=== PATIENT | male | born 1950 | race Caucasian/White ===

== ENCOUNTER → 2016-08-15 | Day surgery (SDC) | payer MEDICARE ==
[~2016-08-15] MED LIST: AMARYL PO; ASPIRIN EC81 M1 PO; CIPRO PO; FLOMAX0.4 M1 PO; FORTAMET1000 MG PO; GLIPIZIDE ER2.5 MG PO; GLUCOPHAGE500 MG PO; HYDROCHLOROTHIA25 MG PO; LISINOPRIL10 MG PO; LORCET HD CAPSU1 CA1 PO; LOSARTAN POTAS100 MG PO; LOSARTAN POTASS50 MG PO; METFORMIN HCL500 M1 PO; NAPROSYN500 MG PO
--- NOTE | ~2016-08-15 | OR ---
Unit #: [id number] #: [id number] Patient: ROMEL GROVES [id number] [address] [place], [place] [address] [id number] O MR#: [id number] NAME: ROMEL GROVES ROOM: Date of Procedure: 08/15/2016 Admission Date: 08/15/2016 Surgeon: Antonio Farmer III, M.D. : 1950 Attending Physician: Antonio Farmer III, M.D. Primary Care Physician: Salvatore Trejo M.D. OPERATIVE REPORT PREOPERATIVE DIAGNOSES Heme-positive stools, history of colon cancer, and some fecal incontinence. POSTOPERATIVE DIAGNOSIS Multiple colon polyps. PROCEDURE PERFORMED Colonoscopy to cecum with cold biopsy. ANESTHESIA 5 mg of Versed and 50 mg of Demerol. SPECIMEN Splenic flexure polyp was sent to pathology. Two polyps from 60 cm were sent to pathology, two polyps from 50 cm were sent to pathology, and one polyp from 20 cm was sent to pathology. COMPLICATIONS None apparent. INDICATIONS FOR PROCEDURE This is a 66-year-old gentleman, who has undergone a prior colon resection. He is here today for surveillance colonoscopy. He has had some recent complaints of fecal incontinence. DESCRIPTION OF PROCEDURE After consent was obtained, the patient was brought to the endoscopy suite and placed in the left lateral decubitus position. We titrated the above sedation and I performed a rectal exam and noted good sphincter tone and no other masses. The scope was placed within the rectal vault. Air was insufflated and I navigated the scope all the way to the ileocolic anastomosis without any difficulty. He had normal mucosa. No evidence of any diverticular disease. He did have multiple benign-appearing polyps. There was one at near the splenic flexure. There were two polyps at 60 cm, two polyps at 50 cm, and one polyp at 20 cm. They were all removed with cold biopsy forceps and sent to pathology labeled in the above containers. The scope was retroflexed within the rectum and no other masses were seen. The scope was then carefully withdrawn. The patient tolerated the procedure without any problems and returned to the recovery room in stable condition. Unit #: [id number] #: [id number] Patient: ROMEL GROVES Dictated by... Antonio Farmer III, M.D. VCL/son TD: 08/19/2016 02:22 JOB #: [id number] OPERATIVE REPORT Page 1 of 1 X Antonio Farmer III, MD X PROCEDURE OPERATIVE NOTE
== END | disposition home or self-care (01) ==
LOC: COPS 09:20
DX: D12.3 Benign neoplasm of transverse colon (principal); D12.6 Benign neoplasm of colon, unspecified; R19.5 Other fecal abnormalities; R15.9 Full incontinence of feces; M19.90 Unspecified osteoarthritis, unspecified site; Z89.521 Acquired absence of right knee; Z85.038 Personal history of other malignant neoplasm of large intestine; Z91.048 Other nonmedicinal substance allergy status; Z98.890 Other specified postprocedural states; Z89.622 Acquired absence of left hip joint; Z89.621 Acquired absence of right hip joint; Z86.010 Personal history of colon polyps; Z79.899 Other long term (current) drug therapy; Z79.84 Long term (current) use of oral hypoglycemic drugs; Z79.82 Long term (current) use of aspirin; E11.9 Type 2 diabetes mellitus without complications
CPT/HCPCS: 82947; 88305; J2175; J2250